=== PATIENT | female | born 1980 | race Caucasian/White ===

== ENCOUNTER 2018-03-11 20:29 | Emergency (ER) | payer SELFPAY ==
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
[2018-03-11] MEDS ORDERED: Ibuprofen TAB* 800 MG PO ONE (21:18)
[2018-03-12 00:31] VITALS: BP 113/68
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
--- NOTE | 2018-03-12 08:04 | RAD ---
Indication: Chest pain. 2 views of the chest including dual energy PA views demonstrate no mediastinal shift. Heart is of normal size and configuration. Lung shah appear clear. IMPRESSION: No active cardiopulmonary disease is noted. R0
--- NOTE | 2018-03-12 08:05 | RAD ---
Indication: Right knee pain. 4 views of the right knee demonstrates no fracture or dislocation. No other bone or joint abnormality is identified. No significant joint effusion is noted. IMPRESSION: No fracture of the right knee is noted. R2
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
== END 2018-03-12 00:30 | disposition home or self-care (01) ==
LOC: EDSEX → ED 20:29
DX: S52.501A Unspecified fracture of the lower end of right radius, initial encounter for closed fracture (principal); S52.614A Nondisplaced fracture of right ulna styloid process, initial encounter for closed fracture; S20.312A Abrasion of left front wall of thorax, initial encounter; S80.01XA Contusion of right knee, initial encounter; V43.52XA Car driver injured in collision with other type car in traffic accident, initial encounter; Y92.410 Unspecified street and highway as the place of occurrence of the external cause; R03.0 Elevated blood-pressure reading, without diagnosis of hypertension
CPT/HCPCS: 71046; 99284; A9270-GY